=== PATIENT | female | born 1975 | race African-American/Black ===

== ENCOUNTER → 2017-12-10 | Emergency (ER) | payer OTHER ==
[~2017-12-10] MED LIST: DICLOFENAC POTA50 MG PO; IBUPROFEN800 MG PO; MEDROLPACK PO; ORPH100T PO
== END | disposition left against medical advice (07) ==
LOC: ER 11:18
DX: Z53.20 Procedure and treatment not carried out because of patient's decision for unspecified reasons (principal)

== ENCOUNTER 2017-12-13 08:35 | Outpatient (CLI) | payer OTHER | END 2017-12-13 08:38 | disposition home or self-care (01) | LOC: RAD 08:35 → MRI 08:35 → RAD 08:38 | DX: R10.2 Pelvic and perineal pain (principal); R93.0 Abnormal findings on diagnostic imaging of skull and head, not elsewhere classified | CPT/HCPCS: 70552 ==

== ENCOUNTER 2017-12-20 13:41 | Emergency (ER) | payer OTHER ==
[~2017-12-20] VITALS: Ht 170.2 cm; Wt 120.2 kg
[2017-12-20] MEDS ORDERED: NORFLEX100MG PO (15:44)
[2017-12-20] MEDS ORDERED: KETO10TA2 PO (15:44)
== END 2017-12-20 15:47 | disposition home or self-care (01) ==
LOC: ER 13:41
DX: M54.2 Cervicalgia (principal)

== ENCOUNTER → 2021-02-17 14:01 | Outpatient (CLI) | payer OTHER ==
[~2021-02-17 14:01] MED LIST changes: +KETO10TA2 PO; +NORFLEX100MG PO
== END | disposition home or self-care (01) ==
LOC: NUCLEAR 14:01
PROVIDERS: ATTEND General Practice
DX: I87.2 Venous insufficiency (chronic) (peripheral) (principal)